=== PATIENT | male | born 1990 | race Caucasian/White ===

== ENCOUNTER 2020-08-31 01:58 | Emergency (ER) | payer BC, SELFPAY ==
--- NOTE | ~2020-08-31 | XR_ITS ---
XR chest 1V portable DATE: 08/31/2020 04:15 INDICATION: Shortness of breath, epigastric pain for 2 days TECHNIQUE: Portable AP chest on 08/31/2020 at 0418 hours COMPARISON: None FINDINGS: Normal heart size. Mild elevation of right leaf of diaphragm. No pulmonary infiltrate or co nsolidation, pleural effusion or pulmonary venous congestion or pneumothorax is detected. Included sk eletal structures are unremarkable. IMPRESSION: No active cardiopulmonary disease Reviewed, dictated and finalized at location A.
--- NOTE | ~2020-08-31 | CT_ITS ---
EXAMINATION: CT abdomen pelvis wo con DATE: 08/31/2020 05:56 INDICATION: Left lower quadrant abdominal pain TECHNIQUE: Computed tomography (CT) of the abdomen and pelvis was performed without intravenous contr ast. Automated exposure control and iterative reconstruction technique were employed. Exam dose: 969 .08 mGy-cm total exam DLP. COMPARISON: 07/24/2018 CT abdomen pelvis with IV contrast material FINDINGS: The lung bases are clear of infiltrate or consolidation. Normal heart size. No pericardial or pleural effusion. No hepatic, splenic, pancreatic, and adrenal or renal space-occupying mass lesion is evident on this limited noncontrast examination. There is a punctate nonobstructing calculus or 2 in the right kidney and a punctate nonobstructing ca lculus in the left kidney. No ureteral calculus or hydroureteronephrosis. The urinary bladder and pro state gland are unremarkable. Normal appendix. No bowel obstruction, bowel wall thickening, pneumatosis or intraperitoneal free air . There is mild colonic diverticulosis; no CT evidence of diverticulitis. No suspicious osteolytic or osteoblastic lesions. 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 IMPRESSION: Minimal nonobstructive lateral nephrolithiasis Minimal colonic diverticulosis; no CT evidence of diverticulitis Reviewed, dictated and finalized at [facility]. Reviewed, dictated and finalized at location A.
[2020-08-31 02:04] VITALS: BP 170/107; PULSE 78; RESP 18; TEMP 36.7; O2SAT 100
[2020-08-31 03:21] VITALS: BP 169/117; PULSE 84; RESP 16; O2SAT 98
--- NOTE | 2020-08-31 03:30 | ECG_ITS ---
Measurements Intervals [place] Rate: 86 P: 59 W[place]: 185 QRS: 35 QRSD: 103 T: 46 QT: 358 QTc: 430 Interpretive Statements SINUS RHYTHM BASELINE ARTIFACT- I, II, III, AVR, AVL, AVF, V1, V4 NORMAL ECG Electronically Signed On 08-31-2020 7:22:51 CDT by Booker Valenzuela D.O.
--- NOTE | 2020-08-31 03:54 | ED.GENADULT ---
HPI - General Adult General Chief complaint: Abdominal Pain Stated complaint: Abdominal pain Time Seen by Provider: 08/31/20 03:29 Source: patient Mode of arrival: ambulatory Limitations: no limitations History of Present Illness HPI narrative: This patient is a 30 year old male who presents for evaluation of chest pain , sob and abdominal pain. He states 2 weeks ago he had sore throat, cough and shortness of breath. He states he was evaluated at an Urgent care and he tested negative for covid. He returned to work 1 week ago. He reports over the past 3 days he has felt like his breathing is constricted. He reports midsternal chest pain that feels like his breathing is constricted. This pain is worse with taking a breath. He reports his cough has improved from 2 weeks ago. He also reports lower abdominal and lower back pain. He denies fever, vomiting, or diarrhea. He also denies leg pain or swelling. He denies sick contacts Related Data Home Medications Medication Instructions Recorded Confirmed ibuprofen 200 mg capsule 200 mg PO Q6H PRN 06/10/19 Allergies Allergy/AdvReac Type Severity Reaction Status Date / Time No Known Allergies Allergy Verified 08/31/20 02:00 Review of Systems Review of Systems: All systems reviewed & are unremarkable except as noted in HPI and below Constitutional: Constitutional: Denies chills and Denies fever(s) Cardiovascular: Cardiovascular: Reports chest pain Respiratory: Respiratory: Reports cough and Reports dyspnea Gastrointestinal: Gastrointestinal: Reports abdominal pain, Denies diarrhea, Denies nausea and Denies vomiting Musculoskeletal: Musculoskeletal: Reports back pain (lower) ON LICENSE OF [facility] Past Medical History Medical History (Updated 08/31/20 @ 06:34 by Katalina Brown MD) Biceps tendonitis Family History Family History Unknown Cancer Social History Social History (Updated 06/11/19 @ 16:36 by Dedra Mcbride) Smoking status: Never smoker Exam Const: General: no acute distress and alert Orientation/consciousness: patient oriented x3 Eyes: EOM: EOMs intact bilaterally Resp: Effort & Inspection: normal respiratory effort and no retractions Auscultation: clear to auscultation bilaterally Other: able to talk in complete sentences. Able to ambulate down hallway with oxygen saturation 96-100 on room air Cardio: Rate: regular rate Rhythm: regular rhythm Heart sounds: no murmurs GI: GI Palp: Yes Soft to palpation, Yes Tenderness to palpation present (GI) (LLQ) and No Guarding due to palpation present (GI) Auscultation: normal bowel sounds Skin: General skin exam: normal color Rashes: no rashes Neuro: General: patient oriented x3 and moves all extremities Extrem: General: normal to inspection, no clubbing, cyanosis or edema and no pedal edema Psych: Mental Status: mental status grossly normal Affect: normal affect Course Reevaluation(s) Reevaluation #1: I reviewed labs and CT with patient. He has never been hypoxic or appeared to have trouble breathing. He has had negative d dimer and troponin. He wants to try inhaler and follow up with PCP regarding his feeling having issues with his breathing. Date: 08/31/20 Time: 06:29 Vital Signs Vital signs: Vital Signs Temperature 98.0 F 08/31/20 02:04 Pulse Rate 78 08/31/20 02:04 Respiratory Rate 18 08/31/20 02:04 Blood Pressure 170/107 H 08/31/20 02:04 Pulse Oximetry 100 08/31/20 02:04 Temperature 98.0 F 08/31/20 02:04 Pulse Rate 87 08/31/20 06:44 Respiratory Rate 16 08/31/20 06:44 Blood Pressure 128/106 H 08/31/20 06:44 Pulse Oximetry 100 08/31/20 06:44 Medical Decision Making Vital Signs Vital Signs: Vital Signs Temperature 98.0 F 08/31/20 02:04 Pulse Rate 78 08/31/20 02:04 Respiratory Rate 18 08/31/20 02:04 Blood Pressure 170/107 H 08/31/20 02:04 Pulse Oximetry 100 08/31/20 02
[2020-08-31 04:21] LABS: Add Urine Microscopic? YES; Appearance Urine Clear (Clear); Bilirubin Urine Negative (Negative); Blood Urine Negative (Negative); Color Urine Yellow (Yellow); Glucose Urine UA Negative (Negative); Ketones Urine Trace mg/dL (Negative); Leukocyte Esterase Ur Negative LEU/UL (Negative); Mucus Urine Rare /lpf; Nitrate Urine Negative (Negative); Protein Urine Negative (Negative); RBC Urine 0-2 /hpf (0-2); Specific Grav Ur 1.021 (1.001-1.035); Urobilinogen Urine Negative mg/dL (<2.0); WBC Urine 0-3 /hpf
[2020-08-31 04:34] LABS: Basophils Absolute Auto 0.1 K/mm3 (0.0-0.1); Basophils Percent Auto 0.9 % (0.2-1.2); Eosinophils Absolute Auto 0.2 K/mm3 (0-0.3); Eosinophils Percent Auto 2.1 % (0-4.4); Hematocrit 46.9 % (42.0-52.0); Hemoglobin 15.8 g/dL (14.0-18.0); Immature Granulocyte Absolute 0.02 K/mm3 (0.00-0.031); Immature Granulocyte Percent A 0.3 % (0-0.5); Lymphocytes Absolute Auto 2.96 K/mm3 (0.9-3.2); Lymphocytes Percent Auto 38.8 % (18.3-44.2); Mean Corpuscular HGB Conc 33.7 g/dl (32-36); Mean Corpuscular Hemoglobin 27.3 pg (26-34); Mean Corpuscular Volume 81.1 fl (80-100); Mean Platelet Volume 9.6 fl (7.4-10.4); Monocytes Absolute Auto 0.6 K/mm3 (0.1-0.6); Monocytes Percent Auto 7.6 % (2.6-8.5); Neutrophils Absolute Auto 3.8 K/mm3 (1.3-6.7); Neutrophils Percent Auto 50.3 % (45.5-73.1); Platelet Count Result 275 k/mm3 (150-375); Red Blood Count 5.78 M/mm3 (4.6-6.20); Red Cell Distribution Width 12.8 % (11.5-14.5); White Blood Count 7.6 K/mm3 (4.5-10.0)
[2020-08-31 04:48] LABS: INR 0.9
[2020-08-31 04:49] LABS: Partial Thromboplastin Time 28.7 SECONDS (22.3-36.8)
[2020-08-31 04:51] LABS: Alanine Aminotransferase 141 U/L (4-50); Alkaline Phosphatase 69 U/L (38-126); Anion Gap 10 mmol/L (8-16); Aspartate Amino Transferase 67 U/L (17-59); Bilirubin,Total 0.4 mg/dL (0.2-1.3); Blood Urea Nitrogen 19 mg/dL (9-20); Calcium 9.9 mg/dL (8.4-10.2); Carbon Dioxide 24 mmol/L (22-30); Chloride 106 mmol/L (98-107); Estimated CRCL calculation 120 ml/min; Estimated Glomerular Filt Rate > 60; Glucose 109 mg/dL (75-110); Lipase 165 U/L (23-300); Potassium 3.7 mmol/L (3.4-5.0); Sodium 140 mmol/L (137-145)
[2020-08-31 05:03] LABS: Troponin I < 0.012 ng/mL (0.000-0.034)
[2020-08-31 05:10] LABS: D Dimer < 0.22 ug/mL (<0.48)
[2020-08-31 05:12] VITALS: BP 144/109; PULSE 87; RESP 15; O2SAT 100
[2020-08-31 06:44] VITALS: BP 128/106; PULSE 87; RESP 16; O2SAT 100
== END 2020-08-31 06:53 | disposition home or self-care (01) ==
PROVIDERS: Emergency Provider General Practice; PCP Physician Assistant Medical
DX: R10.32 Left lower quadrant pain (principal); R06.00 Dyspnea, unspecified; K57.90 Diverticulosis of intestine, part unspecified, without perforation or abscess without bleeding
CPT/HCPCS: 36415; 71045; 74176; 80053; 81001; 83690; 84484; 85025; 85380; 85610; 85730; 93005; 99284

== ENCOUNTER → 2020-09-23 12:46 | Outpatient (CLI) | payer BC, SELFPAY ==
--- NOTE | ~2020-09-23 | US_ITS ---
EXAMINATION: US abdomen complete EXAM DATE: 09/23/2020 13:15 INDICATION: R74.8 - Abnormal levels of other serum enzymes. TECHNIQUE: Multiple grayscale and Doppler images of the complete abdomen were obtained (by a technolo gist who performed the scan) and subsequently reviewed. Correlation is made to CT abdomen pelvis 08/31. FINDINGS: The abdominal aorta is normal in caliber. Visualized portion IVC is patent. The pancreatic head a nd body are normal in appearance. The pancreatic tail is not visualized. There is echogenic liver parenchyma, hepatic steatosis. There are no focal liver lesions identified. There is no evidence of intrahepatic biliary duct dilation. Portal venous flow was seen in the he patopedal, normal direction and has normal Doppler waveform. Common bile duct measures 4 mm, which is normal. The gallbladder wall is normal in thickness, with ex pected amount of distention. No sonographic evidence of pericholecystic fluid. There is no cholelit hiases. Technologist performing exam reports patient did not demonstrate sonographic Diana's sign. Please note that this sign is less reliable in patients who have received pain medication. Right kidney: There is normal contour and echogenicity. It measures 11.0 x 5.5 x 5.6 centimeters. There are no focal renal lesions identified. There is no hydronephrosis. Left kidney: There is normal contour and echogenicity. It measures 12.2 x 5.2 x 5.4 centimeters. T here are no focal renal lesions identified. There is no hydronephrosis. The spleen measures 10.6 centimeters and is morphologically normal. IMPRESSION: Hepatic steatosis. Reviewed, dictated and finalized at location A. IMPRESSION: Hepatic steatosis.
== END ==
PROVIDERS: Visit Provider Physician Assistant Medical
DX: R74.8 Abnormal levels of other serum enzymes (principal); K82.0 Obstruction of gallbladder; K76.0 Fatty (change of) liver, not elsewhere classified
CPT/HCPCS: 76700

== ENCOUNTER 2021-01-26 13:30 | Outpatient (RCR) | payer BC, SELFPAY ==
--- NOTE | 2021-01-07 13:46 | PTOPEVAL ---
PHYSICAL THERAPY EVALUATION Thank you for referring Rafael Noble to [facility].? Waldo was evaluated for the dx of dizziness/BPPV. The patient is scheduled to be seen for therapy? 1 x/week for 4 weeks. Please review, sign, date and return this plan of care MILADY. I agree with and certify that the following plan of care is medically necessary. Referring Physician Date Attending Provider: Woo Hernandez MD *PT Outpatient Evaluation Start: 01/07/21 10:21 Freq: Status: Active Protocol: Document 01/07/21 10:21 MLV (Rec: 01/07/21 11:38 MLV [id number]) Therapy Assessment Status Assessment Status Assessment Status Evaluation Evaluation Information Problem Diagnosis BPPV Additional Evaluation Detail The patient began having dizziness and decreased balanced starting in September 2020 with no known cause. The patient reports feeling off balance when he walks. The patient has had a rare occasion of dizziness with quick head movements. 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 The patient walks his dogs and rides a bike regularly, does house projects. Subjective Information The patient reports headaches Query Text:As Reported By Patient/ that began at the same time Family the dizziness started, along with new onset TMJ. Diagnostic Tests X-Rays For This Problem No Other Tests For This Problem No Pain Assessment Timing of Pain Assessment Timing of Pain Assessment Assessment Self Report Self Report Pain Level 0 Pain Score Pain Score 0: Self Report Upper Extremity Range of Motion General Upper Extremity Range of Motion Reason Not Measured WNL/Left,WNL/Right Lower Extremity Range of Motion General Lower Extremity Range of Motion Reason Not Measured WNL/Left,WNL/Right Lower Extremity Muscle Strength Testing General Lower Extremity Strength Reason Not Measured WNL/Left,WNL/Right Upper Extremity Muscle Strength Testing General Upper Extremity Strength Reason Not Measured WNL/Left,WNL/Right Balance Assessment Time Up Go (TUG) Timed Up and Go Test (TUG) (Seconds) 9 Assistive Devices None Gait Assessment Gait Pattern Assessment Gait Pattern No Deviations/Normal Vestibular Evaluation Vestibular Medical Information Past Vestibul
--- NOTE | 2021-01-24 11:18 | PCPTNOTE ---
PHYSICAL THERAPY DISCHARGE Attending Provider: Woo Hernandez MD Patient:Rafael Noble Date of :1990 Patient has not returned for any further treatments since 01/12/2021, therefore he will be discharged at this time. Patient?s initial visit was on 01/07/2021 10:15 and he had a total of 2 visits. The goals have been met. Thank you for referring this patient to [facility]. Please review, sign, date and return this discharge summary MILADY. I have been updated about the patient's current status and I agree with discharge from the above service at this time. Referring Physician Date
== END 2021-01-31 16:21 | disposition home or self-care (01) ==
LOC: ANHPT 13:30
PROVIDERS: PCP Family Medicine; Visit Provider Otolaryngology
DX: H81.10 Benign paroxysmal vertigo, unspecified ear (principal)
CPT/HCPCS: 97110; 97161

== ENCOUNTER 2021-02-09 08:27 | Outpatient (CLI) | payer BC, SELFPAY ==
--- NOTE | ~2021-02-09 | MR_ITS ---
EXAMINATION: MR brain/brain stem wo con EXAM DATE: 02/09/2021 09:34 INDICATION: R26.89 - Other abnormalities of gait and mobility. TECHNIQUE: Magnetic resonance imaging (MRI) of the brain/brain stem obtained without contrast. Alfredo al T1, axial diffusion, gradient echo (T2*), T1, T2, FLAIR sequences obtained. Demyelinating protocol was utilized including sagittal FLAIR images. There is no prior study for comparison. FINDINGS: There are no areas of restricted diffusion to suggest acute infarction. Corpus callosum unr emarkable. There is no acute hemorrhage seen on the T2*, a hemosiderin sensitive sequence. No intrap arenchymal brain mass. The ventricles are normal in size. There are no extra-axial collections. Contreras w voids are seen in the cerebral arteries on the T2-weighted sequences consistent with their expected patency. The orbits are unremarkable. Soft tissue is unremarkable. IMPRESSION: 1. Unremarkable brain MRI examination. Reviewed, dictated and finalized at location A.
== END 2021-02-09 08:28 | disposition home or self-care (01) ==
PROVIDERS: PCP Family Medicine; Visit Provider Nurse Practitioner Family
DX: H53.9 Unspecified visual disturbance (principal); R26.89 Other abnormalities of gait and mobility
CPT/HCPCS: 70551

== ENCOUNTER 2022-02-15 13:34 | Outpatient (CLI) | payer BC, SELFPAY ==
--- NOTE | ~2022-02-15 | CT_ITS ---
EXAMINATION: CT abdomen pelvis w con DATE: 02/15/2022 14:52 INDICATION: Abdomen pain. TECHNIQUE: Computed tomography (CT) of the abdomen and pelvis was performed with 100 cc Omnipaque 350 intravenous contrast. The dose-length product was 1309.80 mGy-cm. Automated exposure control and ite rative reconstruction technique were employed. COMPARISON: CT dated 08/31/2020 FINDINGS: Lung bases are unremarkable. Heart size normal. No significant pleural or pericardial effus ion. No significant vascular abnormality. No lymphadenopathy. Fatty infiltration of the liver. Small subcentimeter low-density lesion in the liver, most likely alpa ign cyst or hemangioma. The spleen, pancreas, adrenal glands are unremarkable. There are nonobstructi ng bilateral renal stones. Bladder is unremarkable. No hydronephrosis. Nonobstructive bowel gas pattern. Normal appendix. Colonic diverticula without evidence for diverticu litis. No free air or free fluid. No significant vascular abnormality. No lymphadenopathy. There is c hronic deformity of the acetabulum bilaterally, likely posttraumatic. IMPRESSION: 1. No acute abdominal abnormality. 2: Nonobstructing bilateral nephrolithiasis. Reviewed, dictated and finalized at location B.
[2022-02-15 14:32] LABS: Estimated Glomerular Filt Rate > 60
[2022-02-15 15:38] LABS: Basophils Absolute Auto 0.1 K/mm3 (0.0-0.1); Basophils Percent Auto 0.9 % (0.2-1.2); Eosinophils Absolute Auto 0.1 K/mm3 (0-0.3); Hematocrit 45.9 % (42.0-52.0); Immature Granulocyte Absolute 0.01 K/mm3 (0.00-0.031); Immature Granulocyte Percent A 0.2 % (0-0.5); Lymphocytes Absolute Auto 2.29 K/mm3 (0.9-3.2); Lymphocytes Percent Auto 35.8 % (18.3-44.2); Mean Corpuscular HGB Conc 32.7 g/dl (32-36); Mean Corpuscular Hemoglobin 27.8 pg (26-34); Mean Corpuscular Volume 85.2 fl (80-100); Mean Platelet Volume 9.4 fl (7.4-10.4); Monocytes Absolute Auto 0.3 K/mm3 (0.1-0.6); Monocytes Percent Auto 5.3 % (2.6-8.5); Neutrophils Absolute Auto 3.6 K/mm3 (1.3-6.7); Neutrophils Percent Auto 55.8 % (45.5-73.1); Platelet Count Result 256 k/mm3 (150-375); Red Blood Count 5.39 M/mm3 (4.6-6.20); White Blood Count 6.4 K/mm3 (4.5-10.0)
[2022-02-15 15:50] LABS: Alanine Aminotransferase 99 U/L (6-50); Albumin Level 4.5 g/dL (3.5-5.1); Alkaline Phosphatase 61 U/L (38-126); Amylase 62 U/L (30-110); Anion Gap 9 mmol/L (8-16); Aspartate Amino Transferase 49 U/L (17-59); Bilirubin,Total 0.6 mg/dL (0.2-1.3); Blood Urea Nitrogen 12 mg/dL (9-20); Carbon Dioxide 26 mmol/L (22-30); Chloride 100 mmol/L (98-107); Estimated Glomerular Filt Rate > 60; Glucose 90 mg/dL (65-110); Lipase 137 U/L (23-300); Potassium 3.9 mmol/L (3.4-5.0); Sodium 135 mmol/L (137-145)
== END 2022-02-15 13:35 | disposition home or self-care (01) ==
LOC: ANHIMG 13:38
PROVIDERS: PCP Family Medicine; Visit Provider Nurse Practitioner Family
DX: R10.32 Left lower quadrant pain (principal); N20.0 Calculus of kidney
CPT/HCPCS: 74177; 80053; 82150; 83690; 85025; Q9967